=== PATIENT | male | born 1985 | race African-American/Black ===

== ENCOUNTER 2019-04-17 19:06 | Emergency (ER) | payer OTHER ==
[~2019-04-17] VITALS: Ht 172.7 cm; Wt 77.1 kg
[2019-04-17 22:16] LABS: URINE BILIRUBIN NEGATIVE (Negative); URINE BLOOD NEGATIVE (Negative); URINE CLARITY CLEAR; URINE COLOR YELLOW; URINE GLUCOSE-RANDOM* NEGATIVE (Negative); URINE KETONES NEGATIVE (Negative); URINE LEUKOCYTES NEGATIVE (Negative); URINE NITRITE NEGATIVE (Negative); URINE PROTEIN (DIPSTICK) NEGATIVE (Negative); URINE SPECIFIC GRAVITY >= 1.030 (1.005-1.035)
[2019-04-17 23:45] LABS: ABSOLUTE NEUTROPHILS 4.8 thou/uL (1.4-8.2); EOSINOPHILS 4.5 % (0.0-3.0); HEMATOCRIT 42.7 % (42.0-52.0); HEMOGLOBIN 14.5 gm/dL (14.0-18.0); LYMPHOCYTES 30.1 % (24.0-44.0); MCH 31.4 pg (26.0-34.0); MCHC 33.9 g/dL (28.0-37.0); MCV 92.5 fL (80.0-100.0); MONOCYTES 9.4 % (1.0-8.0); PLATELET COUNT 263 thou/uL (150-400); RBC 4.61 mil/uL (4.50-6.00); RDW 12.2 % (10.5-14.5); WBC 8.7 thou/uL (4.0-11.0)
[2019-04-18 00:01] LABS: ANION GAP 7 mmol/L (7-16); BUN 14 mg/dL (7-18); CALCIUM 8.9 mg/dL (8.5-10.1); CHLORIDE 104 mmol/L (98-107); CO2 30 mmol/L (21-32); GLUCOSE 99 mg/dL (74-106); SODIUM 141 mmol/L (136-145); TROPONIN-I <0.06 ng/mL (<0.06)
[2019-04-18 02:35] VITALS: BP 107/58
--- NOTE | 2019-04-18 08:06 | EKG ---
[address] [place] [address] [facility] [place] [address] ELECTROCARDIOGRAM REPORT Name: REY VARGAS Room #: DEP Tanmay#: [id number] Admission: 04/17/19 Attend Phys: Discharge: 04/18/19 Date of : 85 Report #: [id number] THIS REPORT FOR: //name// [facility] ED Test Date: 2019-04-17 Test Time: 23:09:40 Pat Name: REY VARGAS Department: Room: Gender: M Credit Administration Manager: EUGENE : 1985 Requested By: Ahmet Pimentel Order Number: [id number] MD: Irineo Fine Measurements Intervals [place] Rate: 56 P: 47 MI: 138 QRS: 50 QRSD: 86 T: 46 QT: 400 QTc: 387 Interpretive Statements Sinus rhythm RSR' in V1 or V2, right VCD ST elev, probable normal early repol pattern No previous ECG available for comparison Electronically Signed On 04-18-2019 8:05:54 CDT by Irineo Fine [email or web address] <ELECTRONICALLY SIGNED> By: Irineo Fine MD, [facility] 04/18/19 08 D: [id number] Irineo Fine MD, FACC /EPI
== END 2019-04-18 02:36 | disposition home or self-care (01) ==
LOC: ER 19:06
PROVIDERS: Emergency Medicine
DX: R07.89 Other chest pain (principal)